=== PATIENT | male | born 1940 | race Caucasian/White ===

== ENCOUNTER 2021-08-12 14:07 | Emergency (ER) | payer OTHER, MEDICARE, MEDICAID ==
[~2021-08-12] VITALS: Ht 180.3 cm; Wt 125.0 kg
[~2021-08-12 14:07] MED LIST: ATOR20TA PO; CLOP75TA33 PO; MIRT-116 PO; PANT-47 PO
[2021-08-12 15:21] VITALS: BP 142/86
== END 2021-08-12 15:25 | disposition home or self-care (01) ==
LOC: ER 14:07
DX: R00.1 Bradycardia, unspecified (principal); I10 Essential (primary) hypertension; F20.9 Schizophrenia, unspecified; Z85.9 Personal history of malignant neoplasm, unspecified; Z79.899 Other long term (current) drug therapy
CPT/HCPCS: 99283

== ENCOUNTER 2025-05-13 15:08 | Emergency (ER) | payer OTHER, MEDICARE, MEDICAID ==
[~2025-05-13] VITALS: Ht 177.8 cm; Wt 65.9 kg
[~2025-05-13 15:08] MED LIST changes: -MIRT-116 PO; +MIRT-142 PO
[2025-05-13 15:19] VITALS: TEMP 98.5
--- NOTE | 2025-05-13 15:58 | Physician Documentation ---
History of Present Illness ~ Chief Complaint: Weakness Stated Complaint: LOW ENERGY Time Seen by MD: 18:21 OK to notify your PCP?: Yes Primary Medical Doctor: [facility] This is a 84-year-old male who presents with 3-4 days of generalized fatigue and malaise, patient reports no other acute symptoms or concerns including no fever. History as above. No pain. Denies dysuria. Denies cough cold congestion symptoms and denies any abdominal pain. Medication Reconciliation Allergies: Coded Allergies: No Known Allergies (Unverified , 05/13/25) Scheduled Atorvastatin Calcium* (Lipitor*), 1 TABLET PO HS Clopidogrel Bisulfate (Clopidogrel), 1 TAB PO DAILY, (Reported) Mirtazapine (Remeron), 2 TAB PO HS, (Reported) Pantoprazole Sodium (PROTONIX tablet), 1 TAB PO DAILY, (Reported) Past Medical History Past Medical History: Hypertension, *CANCER*, Schizophrenia Past Surgical History: noncontributory Patient History: (CAD) Coronary arteriosclerosis GRANDFATHER OR GRANDMOTHER (92 grandmother old age) (COPD) Chronic obstructive lung disease GRANDFATHER OR GRANDMOTHER (grandfather of TB around age 65. in [facility]) Alcohol Use: None Drug Use: none Lives In: Home Review of Systems ROS As stated above in the HPI, otherwise all systems are reviewed and negative. Physical Exam Vital Signs: Temperature: 98.5, Source: Temporal, Heart Rate: 67, Respiratory Rate: 18, BP: 108/59, Pulse Oximetry: 94, Weight: 65.910 Oxygen Flow Rate: 0 Physical Exam General: Patient is awake, alert, oriented x4 in no acute distress Head: Normocephalic and atraumatic. Eyes: Conjunctival normal. EOMI. PERRL. ENT: Mucous membranes moist. Neck: Supple, trachea is midline. Chest: Clear to auscultation bilaterally without rales, rhonchi, or wheezes. There is no accessory muscle use or retractions. Cardiac: RRR without murmurs, gallops, or rubs. Abd: Soft, nondistended, nontender, with normoactive bowel sounds. No guarding, rebound, or rigidity. Progress Results/Orders Results/Orders Vital Signs 05/13/25 05/13/25 05/13/25 05/13/25 15:19 18:13 18:13 18:42 Temp 98.5 Pulse 67 68 71 Resp 18 18 16 14 B/P (MAP) 108/59 128/76 (93) 128/76 Pulse Ox 94 99 94 O2 Flow Rate 0 0 Laboratory Tests Test 05/13/25 16:50 White Blood Count 9.9 Red Blood Count 3.89 L Hemoglobin 12.8 L Hematocrit 37.6 L Mean Corpuscular Volume 96.8 Mean Corpuscular Hemoglobin 33.0 H Mean Corpuscular Hemoglobin Concent 34.1 Red Cell Distribution Width 15.9 H Platelet Count 255 Mean Platelet Volume 7.7 Neutrophils (%) (Auto) 83.5 H Lymphocytes (%) (Auto) 6.6 L Monocytes (%) (Auto) 9.9 Eosinophils (%) (Auto) 0 Basophils (%) (Auto) 0 Neutrophils # (Auto) 8.3 H Lymphocytes # (Auto) 0.6 L Monocytes # (Auto) 1.0 H Eosinophils # (Auto) 0.0 Basophils # (Auto) 0.0 CBC Comment Sodium Level 131 L Potassium Level 4.1 Chloride Level 96 L Carbon Dioxide Level 30.5 Anion Gap 5 L Blood Urea Nitrogen 30 H Creatinine 1.12 H Estimated GFR/1.73 m2 63 BUN/Creatinine Ratio 26.8 H Glucose Level 117 H Calcium Level 8.6 Albumin 2.8 L Chemistry Comments Medical Decision Making Findings Patient presented to the emergency room with vague complaints of malaise for the past few weeks. Differentials include but are not limited to anemia, electrolyte disturbances, dehydration, viral syndrome therefore emergent labs ordered which were reassuring. Vital signs reassuring. No one-sided deficits and he had not feel patient has weakness is related to stroke as symptoms are generalized. Possible viral syndrome. Departure Disposition: HOME / SELF CARE / HOMELESS Impression: Primary Impression: Malaise and fatigue Condition: Stable Discharge Instructions: General Assault Referrals: NO PRIMARY CARE PROVIDER (PCP) Signature Scribe Signature: no scribe Attestation: The note accurately reflects work and decisions made by me.Adryan Chowdhury MD 05/13/25 18:31 CHER CAMPOS May 13, 2025 15:58 ADRYAN CHOWDHURY MD May 13, 2025 18:31
[2025-05-13 17:21] LABS: MEAN PLATELET VOLUME 7.7 FL (7.4-10.4); RED CELL DISTRIBUTION WIDTH 15.9 % (11.5-14.5)
[2025-05-13 17:30] LABS: CREATININE 1.12 MG/DL (0.60-1.10); TOTAL CARBON DIOXIDE 30.5 MMOL/L (24-32); eCRCL 47 ML/MIN; eGFR 63 ML/MIN
[2025-05-13 18:42] VITALS: BP 128/76; PULSE 71; RESP 14; O2SAT 94
== END 2025-05-13 18:47 | disposition home or self-care (01) ==
LOC: ER 15:08
DX: R53.1 Weakness (principal); R53.81 Other malaise; F20.9 Schizophrenia, unspecified; I10 Essential (primary) hypertension; I25.10 Atherosclerotic heart disease of native coronary artery without angina pectoris
CPT/HCPCS: 36415; 80048; 85025; 99283